=== PATIENT | female | born 1970 | race Two or more races ===

== ENCOUNTER 2024-12-10 05:58 | Emergency (ER) | payer OTHER, SELFPAY ==
[2024-12-10 06:00] VITALS: BMI 35.3
--- NOTE | 2024-12-10 06:13 | EKG_ITS ---
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
[2024-12-10 06:16] VITALS: BP 139/89; PULSE 83; RESP 16; TEMP 36.8; O2SAT 98
--- NOTE | 2024-12-10 06:42 | XR_ITS ---
Examination: CT abdomen and pelvis without contrast. Coronal 3-D reconstructions. Sagittal 2-D reconstructions. Date and time of exam:December 10, 2024 1028 hours INDICATIONS: Onset left flank pain with nausea this morning CTDI: vol (mGy): 10.2 DLP: (mGycm): 604 Technique: Axial images of the abdomen have been obtained, 3 mm slice thickness Intravenous contrast material has not been administered. Low dose protocols were performed. One or more of the following dose reduction techniques were used; automated exposure control, adjustment of the mA and/or KV according to patient size, use of iterative reconstruction technique. Findings: No focal liver or splenic lesion Absent gallbladder No pancreatic mass Minimal left hydronephrosis secondary to 3 mm proximal left ureteral calculus No bowel obstruction Colonic diverticulosis Normal appendix No pelvic mass No bladder calculi IMPRESSION: Minimal left hydronephrosis secondary to 3 mm proximal left ureteral calculus
--- NOTE | 2024-12-10 07:05 | PD.EDBACK ---
ED Back Injury Pain RME/HPI General Chief Complaint: Back Pain/Injury Stated Complaint: LEFT BACK PAIN RADIATING TO LOWER ABD Time Seen by Provider: 12/10/24 06:12 Arrival date/time: 12/10/24 05:58 RME / HPI RME / HPI Narrative: 54-year-old patient presents emergency department with complaint of left flank pain radiating to the LLQ that started at 12 AM today. Patient also complains of nonbilious vomiting x 5 episodes. Patient denies fever or chills denies sick contact denies possibility of food poisoning she attest to a history of gastric bypass 2 years ago. She denies diarrhea. She denies any alleviating or aggravating factors. Related Data Previous Rx's ?Medication ?Instructions ?Recorded hydrocodone 5 mg-acetaminophen 325 1 tab PO Q6H PRN pain #20 tabs 12/10/24 mg tablet ketorolac 10 mg tablet 10 mg PO Q6H 5 days #20 tabs 12/10/24 ondansetron 4 mg disintegrating 4 mg PO Q8H PRN nausea and 12/10/24 tablet vomiting #12 tabs Allergies Allergy/AdvReac Type Severity Reaction Status Date / Time No Known Allergies Allergy Verified 12/10/24 06:00 Review of Systems Review of Systems Systems Reviewed: All systems reviewed, normal except as documented Constitutional Constitutional: Reports system reviewed and no additional complaints, except as documented ENT Ears, Nose, Mouth, and Throat: Denies odynophagia Cardiovascular Cardiovascular: Reports system reviewed and no additional complaints, except as documented Respiratory Respiratory: Reports system reviewed and no additional complaints, except as documented Gastrointestinal Gastrointestinal: Reports abdominal pain, Denies bloating, Denies change in bowel habits, Denies constipation, Denies excessive flatus, Denies hematochezia and Denies odynophagia Genitourinary Genitourinary: Reports system reviewed and no additional complaints, except as documented Musculoskeletal Musculoskeletal: Reports system reviewed and no additional complaints, except as documented Neurologic Neurologic: Reports system reviewed and no additional complaints, except as documented ED Exam General General appearance: Present alert and in no apparent distress Chest Chest inspection: Present normal inspection Respiratory Respiratory exam: Present normal lung sounds bilaterally Cardiovascular Cardiovascular exam: Present regular rate and normal rhythm Abdominal Exam Abdominal exam: Present soft, tenderness and guarding; Absent rebound, diminished bowel sounds, tenderness at McBurney's Point, mass, pulsatile mass or hernia Neurological Exam Neurological exam: Present alert and oriented X3 Psychiatric Psychiatric exam: Present normal affect Course Quality Measures none Orders Category Date Time Status EKG (ED ONLY) *Do not use* NOW Care 12/10/24 06:[address] abdomen pelvis wo con Stat Exams 12/10/24 06:42 Completed EKG (ED Only) Stat Exams 12/10/24 06:13 Draft CBC Stat Lab 12/10/24 06:36 Completed CMP [Comprehensive Metabolic Panel] Stat Lab 12/10/24 06:36 Completed HCG Qualitative,Urine Stat Lab 12/10/24 08:10 Completed Lipase Stat Lab 12/10/24 06:36 Completed Urinalysis, C/S if Indicated Stat Lab 12/10/24 08:10 Completed Urine Culture Stat Lab 12/10/24 08:10 Received Aspirin Chew Med 12/10/24 06:13 Discontinued 81 mg PO X1 ONE Ketorolac Inj [Toradol Inj] Med 12/10/24 06:42 Discontinued 60 mg IM X1 ONE Morphine Inj Med 12/10/24 06:42 Discontinued 4 mg IM X1 ONE Ondansetron Odt [Zofran Odt] Med 12/10/24 06:13 Discontinued 4 mg PO X1 ONE Ondansetron Odt [Zofran Odt] Med 12/10/24 06:42 Discontinued 4 mg PO X1 ONE Vital Signs Vital signs: Vital Signs Temperature 98.2 F 12/10/24 06:16 Pulse Rate 83 12/10/24 06:16 Respiratory Rate 16 12/10/24 06:16 Blood Pressure 139/89 H 12/10/24 06:16 Pulse Oximetry (%) 98 12/10/24 06:16 Oxygen Delivery Method Room Air 12/10/24 06:16 Back Pain / Injury MDM Narrative MDM Narrative:: 54-year-old patient presents emergency department complaint of left back pain radiating to left lower flank imaging studies indicate 3 mm stone with mild hydronephrosis consistent with kidney stone. Patient's pain improved with medications in ED no signs of renal injury. Patient is stable to DC home with ibuprofen and opiates for pain control. Patient also encouraged to increase fluid intake to avoid dehydration. Patient data External records reviewed:: None Clinical information provided by:: none Social determinants that could affect healthcare access:: none Patient has the following chronic illnesses:: na How is presenting disease/condition affected by chronic disease/condition?: no chronic disease Evaluation data The following diagnostics were reviewed and interpreted by me:: lab results and radiology exam(s) Lab and/or radiology exams considered but not ordered:: both considered and ordered Interpretation Summary: Unremarkable blood work however CT indicates 3 mm stone with hydronephrosis Medications / Prescriptions Medications or Prescriptions considered but not ordered:: both considered and ordered Medication administrations:: Medication Administration History Discontinued Medications Aspirin (Aspirin 81 Mg Chew) 81 mg PO X1 ONE Stop: 12/10/24 06:14 Last Admin: 12/10/24 06:47 Dose: Not Given Documented By: [facility] Non-Admin Reason: Discontinued Ketorolac Tromethamine (Ketorolac Inj 60 Mg/2 Ml Vial) 60 mg IM X1 ONE Stop: 12/10/24 06:43 Last Admin: 12/10/24 07:36 Dose: 60 mg Documented By: ARF Morphine Sulfate (Morphine Sulf Inj 10 Mg/Ml Vial) 4 mg IM X1 ONE Stop: 12/10/24 06:43 Last Admin: 12/10/24 07:36 Dose: 4 mg Documented By: ARF Ondansetron HCl (Ondansetron Odt 4 Mg Tabrap) 4 mg PO X1 ONE; Protocol Stop: 12/10/24 06:14 Last Admin: 12/10/24 06:47 Dose: Not Given Documented By: MC Non-Admin Reason: Discontinued Ondansetron HCl (Ondansetron Odt 4 Mg Tabrap) 4 mg PO X1 ONE; Protocol Stop: 12/10/24 06:43 Last Admin: 12/10/24 07:36 Dose: 4 mg Documented By: ARF per above Consultations Consultation(s) initiated? (list below): No Diagnosis Differential diagnosis back pain/injury: lumbar radiculopathy, sciatica, strain of lumbar region, renal colic, pyelonephritis and thoracic back pain Most likely diagnosis given after review of the tests above:: renal stone Admission Indicated Admission indicated?: not indicated Explain why admission is indicated or not indicated:: na Admission Request Was there a request for admission?: No Disposition Plan Disposition Plan: Discharge Discharge Attestation Discharge Attestation: The patient and all family members were given an opportunity to ask questions and understood the discharge instructions. Discharge instructions specifically effects, indications for sooner follow up or return to the emergency department, and the expected course of current diagnosis. Patient condition: Stable Discharge Plan Plan Patient Disposition: HOME (Self Care) Prescriptions/Referrals Prescriptions/Med Rec: New ketorolac 10 mg tablet 10 mg PO Q6H 5 Days Qty: 20 0RF Rx Instructions: maximum total duration of 5 days from all oral, intranasal, or parenteral formulations hydrocodone-acetaminophen 5-325 mg tablet 1 tab PO Q6H MDD 10 PRN (Reason: pain) Qty: 20 0RF Rx Instructions: N20.1 ondansetron 4 mg tablet,disintegrating 4 mg PO Q8H PRN (Reason: nausea and vomiting) Qty: 12 0RF Referrals: JAMEE BRISENO [Other] - In 1 week Problem List Clinical Impression: Renal colic, Calculus of kidney Patient/Caregiver Discharge Instructions Education Materials: Understanding Kidney Stones, Treating Kidney Stones ..., ED Kidney Stone Undescended No ..., ED Kidney Stone w/ Colic Print Language: Georgian Stand Alone Forms: Sarah Beth Award Info., Patient Portal Info Letter
[2024-12-10 07:07] LABS: Basophils # (Auto) 0.1 Thou/mm3 (0.0-0.2); Basophils % (Auto) 0 % (0-2.5); Eosinophils % (Auto) 0 % (0-10); Hematocrit 40.1 % (36.0-46.0); Hemoglobin 13.7 g/dL (12.0-16.0); Immature Granulocytes % (Auto) 0 % (0-0); Immature Granulocytes Auto 0.03 Thou/mm3 (0.00-0.00); Lymphocytes # (Auto) 1.5 Thou/mm3 (1.0-4.8); Lymphocytes % (Auto) 11 % (10-50); Mean Corpuscular HGB Conc 34.2 g/dl (31.0-37.0); Mean Corpuscular Hemoglobin 30.6 pg (25.0-35.0); Mean Corpuscular Volume 90 fL (80-100); Monocytes # (Auto) 0.6 Thou/mm3 (0.0-0.8); Monocytes % (Auto) 4 % (0-12); Neutrophils # (Auto) 11.9 Thou/mm3 (1.8-7.7); Neutrophils % (Auto) 84 % (37-80); Nucleated Red Blood Cell % 0 /100 WBC (0); Platelet Count 317 Thou/mm3 (140-440); RDW Standard Deviation 42.9 fL (36.4-46.3); Red Blood Count 4.47 Miln/mm3 (4.00-5.20); White Blood Count 14.1 Thou/mm3 (3.6-11.0)
[2024-12-10 07:20] LABS: Alanine Aminotransferase 26 U/L (10-49); Albumin, Serum 4.5 gm/dL (3.5-5.0); Albumin/Globulin Ratio 1.7 (1.2-2.2); Alkaline Phosphatase 81 U/L (46-116); Anion Gap 6 (7-16); Aspartate Amino Transferase 27 U/L (0-34); BUN/Creatinine Ratio 19 Ratio (12-20); Bilirubin,Total 0.5 mg/dL (0.3-1.2); Blood Urea Nitrogen 15 mg/dL (9-23); Calcium 9.7 mg/dL (8.3-10.6); Calcium (Corrected) 9.7 mg/dL (8.5-10.1); Carbon Dioxide 28.4 mMol/L (20.0-31.0); Chloride 107 mMol/L (98-107); Creatinine (Component) 0.8 mg/dL (0.6-1.3); Estimated Creatinine Clearance 82.6 mL/min (>60); Globulin 2.6 gm/dL (2.3-3.5); Glucose 144 mg/dL (74-106); Lipase 30 U/L (12-53); Osmolality,Calculated 285 (275-295); Potassium 3.5 mMol/L (3.4-5.1); Sodium 141 mMol/L (136-145); Total Protein 7.1 gm/dL (5.7-8.2); eGFR > 60 See Note
[2024-12-10] MEDS: ONDANSETRON ODT 4 MG TABRAP PO (07:36)
[2024-12-10] MEDS: MORPHINE SULF INJ 10 MG/ML VIAL 4 MG IM (07:36)
[2024-12-10] MEDS: KETOROLAC INJ 60 MG/2 ML VIAL IM (07:36)
[2024-12-10 08:16] LABS: Collection Type, Urine Voided
[2024-12-10 08:34] VITALS: BP 110/72; PULSE 65; RESP 18; TEMP 36.3; O2SAT 96
[2024-12-10 09:12] LABS: Bacteria,Urine 3+; Bilirubin,Urine Negative (Negative); Blood,Urine 3+ (Negative); Color,Urine Yellow (Lt Yel-Yel); Glucose, Urine Negative (Negative); Ketones,Urine Negative (Negative); Leukocyte Esterase,Urine Positive (Negative); Nitrite,Urine Positive (Negative); Protein,Urine 1+ (Neg - Trace); RBC,Urine 130 /hpf (0-3); Specific Gravity,Urine 1.029 (1.001-1.035); Squamous Epithelial Cell,Urine < 1 /hpf (0-5); Urobilinogen,Urine Negative mg/dL (0.0-1.0); WBC,Urine 42 /hpf (0-5)
[2024-12-10 09:19] LABS: Clarity,Urine Hazy (Clear/Hazy); Culture Indicated,Urine Yes
[2024-12-10 09:55] LABS: HCG Qualitative,Urine Negative
[2024-12-10] MEDS: MORPHINE SULF INJ 10 MG/ML VIAL 2 MG IM (11:54)
--- NOTE | 2024-12-20 15:42 | PC.NURSE ---
I CONTACTED PATIENT VIA PHONE AND INFORMED HER OF THE ABX ORDERED DUE TO URINE CULTURE RESULTS. PT STATES SHE HAD ALREADY FOLLOWED UP WITH PMD WHO PRESCRIBED HER CIPRO FOR 7 DAYS. CIPRO DOES COVER BACTERIA NOTED IN CULTURE RESULTS. MD AWARE NO NEED TO CASING BLOWER NEW ABD. ENCOURAGE TO FOLLOW UP WITH PMD FOR RE EVAL IF NEEDED.
== END 2024-12-10 12:12 | disposition home or self-care (01) ==
PROVIDERS: Physician Assistant; Emergency Provider Emergency Medicine
DX: N13.2 Hydronephrosis with renal and ureteral calculous obstruction (principal)
CPT/HCPCS: 36415; 74176; 80053; 81001; 81025; 83690; 84436; 84439; 84443; 84484; 85025; 87077; 87086; 87186; 93005; 96372; 99284; J1885; J2270; Q0162